=== PATIENT | female | born 1940 | race Caucasian/White ===

== ENCOUNTER 2016-08-27 08:48 | Day surgery (SDC) | payer MEDICARE ==
[2016-08-27] VITALS (9 sets, daily range): BP systolic 102–160; BP diastolic 49–74; PULSE 59–83; RESP 13–32; Ht 167.6 cm; Wt 46.2 kg
[~2016-08-27] VITALS: Ht 167.6 cm; Wt 46.2 kg
[2016-08-27] MEDS ORDERED: METF500T4 PO (09:17)
[2016-08-27] MEDS ORDERED: LEVO50TA74 PO (09:18)
[2016-08-27] MEDS ORDERED: [UNRECOGNIZED DRUG - CODE] PO (09:19)
[2016-08-27] MEDS ORDERED: ATOR20TA38 PO (09:19)
[2016-08-27 10:07] LABS: ADD SCAN DIFF NO
[2016-08-27 10:11] LABS: BASOPHIL # 0.1 10^3/ul (0.0-0.1); BASOPHILS % 0.7 % (0.0-2.0); EOSINOPHILS # 0.1 10^3/ul (0.0-0.5); EOSINOPHILS % 1.5 % (0.0-7.0); HEMATOCRIT 42.4 % (37.0-47.0); HEMOGLOBIN 14.2 g/dl (12.0-16.0); LYMPHOCYTES # 1.6 10^3/ul (0.8-2.9); LYMPHOCYTES % 23.9 % (15.0-51.0); MEAN CORPUSCULAR HGB CONC 33.5 g/dl (32.0-37.0); MEAN CORPUSCULAR VOLUME 95.5 fl (82.0-101.0); MEAN PLATELET VOLUME 10.7 fl (7.4-10.4); MONOCYTE # 0.5 10^3/ul (0.3-0.9); MONOCYTES % 7.2 % (0.0-11.0); NEUTROPHIL # 4.5 10^3/ul (1.6-7.5); NEUTROPHILS % 66.4 % (39.0-77.0); PLATELET COUNT 278 10^3/UL (140-415); RED BLOOD COUNT 4.44 10^6/ul (4.20-5.40); RED CELL DISTRIBUTION WIDTH 13.9 % (11.5-14.5); WHITE BLOOD COUNT 6.8 10^3/ul (4.8-10.8)
[2016-08-27 10:24] LABS: INR 0.92; PROTIME 12.4 Sec (12.2-14.2)
[2016-08-27 10:33] LABS: CALCIUM 9.9 mg/dl (8.4-10.2); CREATININE 1.11 mg/dl (0.44-1.00); POTASSIUM 4.4 mmol/L (3.5-5.1)
[2016-08-27] MEDS ORDERED: DIAZEPAM 5 MG TAB PO ONE (11:30)
[2016-08-27] MEDS ORDERED: IODIXANOL LOCM 100 ML BTL ONE (12:33)
[2016-08-27] MEDS ORDERED: HEPARIN 1000 UNITS/ML 10 ML INJ ONE (12:33)
[2016-08-27] MEDS ORDERED: FENTAnyl 50 MCG/ML VIAL ONE (12:33)
[2016-08-27] MEDS ORDERED: NITROGLYCERIN (IC) 100 MCG/ML INJ ONE (12:33)
[2016-08-27] MEDS ORDERED: LIDOCAINE 1% (MDV) 20 ML INJ ONE (12:33)
[2016-08-27] MEDS ORDERED: MIDAZOLAM 1 MG/ML 2 ML INJ ONE (12:33)
[2016-08-27] MEDS ORDERED: VERAPAMIL 5 MG INJ ONE (12:33)
[2016-08-27] MEDS ORDERED: SOD CHLORIDE 0.9% 1,000 ML IV SCH (13:33)
--- NOTE | 2016-08-27 13:35 | PDOCDIS ---
Discharge Instructions CONDITION Patient Condition: Good HOME CARE INSTRUCTIONS: Diet Instructions: Low Fat /Cholesterol ACTIVITY: Activity Restrictions: Avoid heavy lifting (x 2 days) Do not Drive (x 1 day) OTHER ORDERS: Other Orders: restart metformin on 08/30/16 Vitor Menard DO Aug 27, 2016 13:35
[2016-08-27] MEDS ORDERED: AL HYDROX/MG HYDROX/SIMETH 30 ML CUP PO PRN (14:00)
[2016-08-27] MEDS ORDERED: ACETAMINOPHEN 325 MG TAB PO PRN (14:00)
[2016-08-27] MEDS ORDERED: ONDANSETRON 4 MG INJ IV PRN (14:00)
--- NOTE | 2016-08-28 07:26 | CARRPT ---
DATE OF PROCEDURE: 08/27/2016 PROCEDURES: 1. Left heart catheterization. 2. ____ 2. Interpretation and supervision of ____angiogram. 3. Left ventricular pressure measurements. 4. Left radial artery approach. PATIENT HISTORY: This is a 76-year-old female who presents with symptoms of chest pain and abnormal stress test. FINDINGS: HEMODYNAMICS: 1. LV pressure was 163____ with an EDP of 12. 2. Aortic pressure 164/72. Left main is a large caliber vessel with no significant disease. 3. Circumflex is a small to medium caliber vessel with no significant disease. 4. LAD is a medium to large caliber vessel with a mid-10% stenosis, with no significant disease. 5. RCA is a medium to large caliber vessel and is dominant with distal 10% stenosis. DESCRIPTION OF PROCEDURE: The patient was brought to the cathode ray tube salvage processor after informed consent. The jeremie ent was prepped and draped as per protocol. Left radial access was obtained and a 5/6-Dutch sheath was placed in the left radial artery. A 5-Dutch [place] catheter was used to engage the left main a nd angiogram was performed. We next engaged the RCA and angiogram was performed. We next entered t he left ventricle and measurements were obtained as well as pullback. There were no immediate compl ications. All catheters and wires were removed. The patient was chest pain free throughout the pro cedure. DIAGNOSIS: Minimal nonobstructive coronary artery disease. COMPLICATIONS: None. BLOOD LOSS: Minimal. RECOMMENDATIONS: Medical management. Dictated By: BREN PAYNE/WAGNER Conf#: [id number] DID#: [id number]
== END 2016-08-27 17:30 | disposition home or self-care (01) ==
LOC: SDS 08:48
PROVIDERS: ATTEND Internal Medicine Cardiovascular Disease
DX: I25.10 Atherosclerotic heart disease of native coronary artery without angina pectoris (principal); R94.39 Abnormal result of other cardiovascular function study; E11.9 Type 2 diabetes mellitus without complications; E78.2 Mixed hyperlipidemia
CPT/HCPCS: 80048; 82962; 85025; 85610; 85730; 93458; C1769; C1887; J1644; J2250; J3010; Q9967